=== PATIENT | female | born 1975 | race Two or more races ===

== ENCOUNTER 2024-05-31 15:47 | Outpatient (AMB) | payer MEDICAID, SELFPAY ==
[2024-05-31 16:02] VITALS: BP 129/87; PULSE 100; RESP 19; TEMP 36.7; O2SAT 98; BMI 24.7
--- NOTE | 2024-05-31 16:02 | PD.ORTHCLVIS ---
Vital signs 05/31/24 16:02 Height 1.74 m Height Method Stated Weight 75.013 kg Weight Measurement Method Standing Scale BMI 24.7 BP 129/87 H Blood Pressure Source Automatic Cuff Blood Pressure Location Right Upper Arm Position Sitting Respiration 19 Pulse 100 Pulse Source Monitor Temp 98.1 F Temp Source Temporal Artery Scan Pulse Oximetry (%) 98 Oxygen Delivery Method Room Air Med/Allergies Allergies & Medications Allergies No Known Drug Allergies Allergy (Verified 05/31/24 16:02) Medication Reconciliation acetaminophen 500 mg tablet 500 mg PO Q6H PRN Pain 03/29/24 [History Confirmed 05/31/24] oxycodone 5 mg tablet 5 mg PO Q6H PRN pain #14 tabs 03/30/24 [Rx Confirmed 05/31/24] acetaminophen 300 mg-codeine 30 mg tablet 1 tab PO Q8H PRN pain #28 tabs 04/05/24 [Rx Confirmed 05/31/24] acetaminophen 500 mg tablet (Acetaminophen Extra Strength) 1,000 mg (2 x 500 mg) PO Q6H PRN pain #90 tabs 05/24/24 [Rx Confirmed 05/31/24] Subjective Visit Visit for: follow up visit Immunization / Flu Flu Vaccine in the Last 12 Months: No Flu Vaccine Exclusion Criteria: No Exclusion Criteria Pain Pain level (0-10): 0 Pain quality: other (specify) (STIFFNESS) Associated signs & symptoms: stiffness and other (specify) (CANT BEND/KNEE LOCKS) Ambulatory data Ambulatory device: none Treatments Improvement with previous injections: No Improvement with PT: No Improvement with NSAIDS: no Review of Systems Review of Systems: All systems negative unless otherwise noted in HPI. Office Procedures GNS Level of Care Nursing/Assessment Patient Status: Established Patient Nursing Assessment/Reassesment: Medication Reconciliation, Update PMH in EMR and Vital Signs Coordination of Care: Complex Care and Chronic Disease 1-5, Education Complex Pt/Fam, Consent,records obtained, informed consent, 1 Ins Authorization and Staff clarify orders Special Needs: Language special needs Established Patient Charge Established Patient Point Assignment: 105 Established Patient Point Charge: EP Level 3 (80-115) Past Medical History Past Medical History Have you ever been diagnosed with any of the following: Neurological Problems Seizures: No Cardiology Problems Congestive Heart Failure: No Respiratory Problems Chronic Obstructive Pulmonary Disease (COPD): No Smoking: No Smoking Cessation Counseling: No Smoking Exposure: No Tobacco Use: No Stomache/Intestinal Problems Hepatitis: No Obesity: Yes Genital/Urinary Problems Renal Disease: No Kidney Stones: Yes Reproductive Problems Previous Pregnancies: Yes Musculoskeletal Problems Arthritis: Yes Endocrine Problems Diabetes Mellitus Type 1: No Diabetes Mellitus Type 2: No Other Problems Hospitalization: No Shingles: No Blood Transfusions: No Blood Transfusion Reaction: No Anesthesia Reactions: Yes (nausea and vomitting) Chicken Pox: Yes Cancer: No Surgical History Total Knee Replacement: Yes
== END 2024-05-31 16:14 | disposition home or self-care (01) ==
PROVIDERS: PCP Family Medicine; Referring Provider Family Medicine; Supervising Provider Orthopaedic Surgery Adult Reconstructive Orthopaedic Surgery; Visit Provider Orthopaedic Surgery Adult Reconstructive Orthopaedic Surgery
DX: M25.669 Stiffness of unspecified knee, not elsewhere classified (principal)
CPT/HCPCS: 99213; G0463

== ENCOUNTER 2024-08-09 15:21 | Outpatient (AMB) | payer MEDICAID, SELFPAY ==
[2024-08-09 15:42] VITALS: BP 115/80; PULSE 80; RESP 19; TEMP 36.7; O2SAT 98; BMI 25.2
--- NOTE | 2024-08-09 15:42 | PD.ORTHCLVIS ---
Vital signs 08/09/24 15:42 Height 1.74 m Height Method Stated Weight 76.204 kg Weight Measurement Method Standing Scale BMI 25.2 BP 115/80 Blood Pressure Source Automatic Cuff Blood Pressure Location Left Upper Arm Position Sitting Respiration 19 Pulse 80 Pulse Source Monitor Temp 98.1 F Temp Source Temporal Artery Scan Pulse Oximetry (%) 98 Oxygen Delivery Method Room Air Med/Allergies Allergies & Medications Allergies No Known Drug Allergies Allergy (Verified 08/09/24 15:43) Medication Reconciliation acetaminophen 500 mg tablet 500 mg PO Q6H PRN Pain 03/29/24 [History Confirmed 08/09/24] oxycodone 5 mg tablet 5 mg PO Q6H PRN pain #14 tabs 03/30/24 [Rx Confirmed 08/09/24] acetaminophen 300 mg-codeine 30 mg tablet 1 tab PO Q8H PRN pain #28 tabs 04/05/24 [Rx Confirmed 08/09/24] acetaminophen 500 mg tablet (Acetaminophen Extra Strength) 1,000 mg (2 x 500 mg) PO Q6H PRN pain #90 tabs 05/24/24 [Rx Confirmed 08/09/24] Subjective Visit Visit for: follow up visit Immunization / Flu Flu Vaccine in the Last 12 Months: No Flu Vaccine Exclusion Criteria: Refused by Patient and No Exclusion Criteria History of Present Illness Chief complaint: FOLLOW UP WEAKNESS Patient is 3.5-month status post manipulation. She is post to work with outpatient physical therapy. She reports that she is still improving. She also reports that her pain is better than before surgery. Personal History Red flag PMH: none Pain Pain level (0-10): 4 Pain duration: ON AND OFF Pain location: inside (medial), outside (lateral) and anterior Pain quality: sharp and aching Pain timing: night and increases with activity Associated signs & symptoms: weakness, stiffness and other (specify) (CANT BEND/KNEE LOCKS) Ambulatory data Ambulatory device: none Treatments Improvement with previous injections: No Improvement with PT: No Improvement with NSAIDS: no Review of Systems Review of Systems: All systems negative unless otherwise noted in HPI. Exam Exam Patient is in no acute distress and is cooperative with the examination today. Patient has a normal mood and affect. Breathing is nonlabored. In no respiratory distress. Bilateral extremities were evaluated and demonstrates sensation intact to light touch. Palpable pedal pulses are present. No significant edema is present. Patient has range of motion 0-95 degrees Assessment and Plan Problem List (1) Status post total left knee replacement: Status: Acute Plan: The patient is doing well but has some arthrofibrosis. We recommend continued physical therapy or exercises at home. Plan Patient is doing well. We will see the patient back in 3 months Office Procedures GNS Level of Care Nursing/Assessment Patient Status: Established Patient Nursing Assessment/Reassesment: Medication Reconciliation, Update PMH in EMR and Vital Signs Coordination of Care: Complex Care and Chronic Disease 1-5, Education Complex Pt/Fam, Consent,records obtained, informed consent, 1 Ins Authorization, Results/Orders obtained and Staff clarify orders Special Needs: Language special needs Established Patient Charge Established Patient Point Assignment: 110 Established Patient Point Charge: EP Level 3 (80-115) Past Medical History Past Medical History Have you ever been diagnosed with any of the following: Neurological Problems Seizures: No Cardiology Problems Congestive Heart Failure: No Respiratory Problems Chronic Obstructive Pulmonary Disease (COPD): No Smoking: No Smoking Cessation Counseling: No Smoking Exposure: No Tobacco Use: No Stomache/Intestinal Problems Hepatitis: No Obesity: Yes Genital/Urinary Problems Renal Disease: No Kidney Stones: Yes Reproductive Problems Previous Pregnancies: Yes Musculoskeletal Problems Arthritis: Yes Endocrine Problems Diabetes Mellitus Type 1: No Diabetes Mellitus Type 2: No Other Problems Hospitalization: No Shingles: No Blood Transfusions: No Blood Transfusion Reaction: No Anesthesia Reactions: Yes (nausea and vomitting) Chicken Pox: Yes Cancer: No Surgical History Total Knee Replacement: Yes
== END 2024-08-09 15:46 | disposition home or self-care (01) ==
LOC: HODSRG 15:21
PROVIDERS: Supervising Provider Orthopaedic Surgery Adult Reconstructive Orthopaedic Surgery; Visit Provider Orthopaedic Surgery Adult Reconstructive Orthopaedic Surgery
DX: Z96.652 Presence of left artificial knee joint (principal); M24.60 Ankylosis, unspecified joint
CPT/HCPCS: 99213; G0463

== ENCOUNTER 2024-11-08 14:48 | Outpatient (AMB) | payer MEDICAID, SELFPAY ==
--- NOTE | 2024-11-08 14:57 | PD.ORTHCLVIS ---
Vital signs 11/08/24 15:00 Height 1.74 m Height Method Stated Weight 76.685 kg Weight Measurement Method Standing Scale BMI 25.3 BP 122/84 Blood Pressure Source Automatic Cuff Blood Pressure Location Right Upper Arm Position Sitting Respiration 19 Pulse 83 Pulse Source Monitor Temp 97.8 F Temp Source Temporal Artery Scan Pulse Oximetry (%) 97 Oxygen Delivery Method Room Air Med/Allergies Allergies & Medications Allergies No Known Drug Allergies Allergy (Verified 11/08/24 15:01) Medication Reconciliation acetaminophen 500 mg tablet 500 mg PO Q6H PRN Pain 03/29/24 [History Confirmed 11/08/24] oxycodone 5 mg tablet 5 mg PO Q6H PRN pain #14 tabs 03/30/24 [Rx Confirmed 11/08/24] acetaminophen 300 mg-codeine 30 mg tablet 1 tab PO Q8H PRN pain #28 tabs 04/05/24 [Rx Confirmed 11/08/24] acetaminophen 500 mg tablet (Acetaminophen Extra Strength) 1,000 mg (2 x 500 mg) PO Q6H PRN pain #90 tabs 11/08/24 [Rx Confirmed 11/08/24] Exam Exam Patient is in no acute distress and is cooperative with the examination today. Patient has a normal mood and affect. Breathing is nonlabored. In no respiratory distress. Bilateral extremities were evaluated and demonstrates sensation intact to light touch. Palpable pedal pulses are present. No significant edema is present. Patient has range of motion 0-100 degrees Assessment and Plan Problem List (1) Status post total left knee replacement: Status: Acute Plan: Patient is doing well status post left total knee replacement complicated by arthrofibrosis status post manipulation. She should continue being active and do home exercises Plan We will see her back in approximately 3 months Office Procedures GNS Level of Care Nursing/Assessment Patient Status: Established Patient Nursing Assessment/Reassesment: Medication Reconciliation, Update PMH in EMR and Vital Signs Coordination of Care: Complex Care and Chronic Disease 1-5, Education Complex Pt/Fam, Consent,records obtained, informed consent, Results/Orders obtained and Staff clarify orders Special Needs: Language special needs Established Patient Charge Established Patient Point Assignment: 95 Established Patient Point Charge: Level 3 (80-115) AR Intake Visit Data Collection New Patient or Established: Established Patient (seen at [facility] within 3 years) Reason for Visit:: FOLLOW UP KNEE MANIPULATION Seen by Clinical Staff ONLY (RN/MA): No Verbal consent obtained for Telemed visit?: No Questionairres Past Medical History Past Medical History Have you ever been diagnosed with any of the following: Neurological Problems Seizures: No Cardiology Problems Congestive Heart Failure: No Respiratory Problems Chronic Obstructive Pulmonary Disease (COPD): No Smoking: No Smoking Cessation Counseling: No Smoking Exposure: No Tobacco Use: No Stomache/Intestinal Problems Hepatitis: No Obesity: Yes Genital/Urinary Problems Renal Disease: No Kidney Stones: Yes Reproductive Problems Previous Pregnancies: Yes Musculoskeletal Problems Arthritis: Yes Endocrine Problems Diabetes Mellitus Type 1: No Diabetes Mellitus Type 2: No Other Problems Hospitalization: No Shingles: No Blood Transfusions: No Blood Transfusion Reaction: No Anesthesia Reactions: Yes (nausea and vomitting) Chicken Pox: Yes Cancer: No Surgical History Total Knee Replacement: Yes Subjective Visit Visit for: follow up visit, post op #2 and knee Immunization / Flu Flu Vaccine in the Last 12 Months: No Flu Vaccine Exclusion Criteria: No Exclusion Criteria History of Present Illness Chief complaint: Left knee manipulation Patient is 7 months status postmanipulation anesthesia for stiffness after a total knee replacement. She is doing well. She reports some stiffness but the pain is improving. She is done with physical therapy and has great range of motion Pain Pain level (0-10): 5 Pain duration: COMES AND GOES Pain location: inside (medial), outside (lateral) and anterior Pain quality: sharp, dull and aching Pain timing: increases with activity Associated signs & symptoms: numbness Ambulatory data Ambulatory device: none Treatments Improvement with previous injections: No Improvement with PT: No Improvement with NSAIDS: no Review of Systems Review of Systems: All systems negative unless otherwise noted in HPI.
[2024-11-08 15:00] VITALS: BP 122/84; PULSE 83; RESP 19; TEMP 36.6; O2SAT 97; BMI 25.3
== END 2024-11-08 15:20 | disposition home or self-care (01) ==
LOC: HODSRG 14:48
PROVIDERS: Supervising Provider Orthopaedic Surgery Adult Reconstructive Orthopaedic Surgery; Visit Provider Orthopaedic Surgery Adult Reconstructive Orthopaedic Surgery
DX: Z47.1 Aftercare following joint replacement surgery (principal); Z96.652 Presence of left artificial knee joint
CPT/HCPCS: 99213; G0463

== ENCOUNTER → 2025-02-07 | Outpatient (CLI) | payer MEDICAID, SELFPAY ==
--- NOTE | 2025-02-07 14:16 | XR_ITS ---
Examination: Left knee 4 views TECHNIQUE: PA standing PA flexion lateral axial left knee standing 4 views Date and time: February 07, 2025 1427 hours INDICATIONS: Joint locking knee pain post knee replacement one year ago. FINDINGS: Mild osteopenia. Total left knee arthroplasty. Satisfactory alignment IMPRESSION: Total left knee replacement with satisfactory alignment
== END | disposition home or self-care (01) ==
PROVIDERS: PCP Nurse Practitioner Family; Referring Provider Orthopaedic Surgery Adult Reconstructive Orthopaedic Surgery; Visit Provider Orthopaedic Surgery Adult Reconstructive Orthopaedic Surgery
DX: M25.562 Pain in left knee (principal); Z96.652 Presence of left artificial knee joint
CPT/HCPCS: 73564

== ENCOUNTER 2025-02-10 08:49 | Outpatient (AMB) | payer MEDICAID, SELFPAY ==
[2025-02-10 09:05] VITALS: BP 110/75; PULSE 80; RESP 17; TEMP 35.7; O2SAT 97; BMI 24.5
--- NOTE | 2025-02-10 09:05 | PD.ORTHCLVIS ---
Vital signs 02/10/25 09:05 Height 1.74 m Height Method Stated Weight 74.446 kg Weight Measurement Method Standing Scale BMI 24.5 BP 110/75 Blood Pressure Source Automatic Cuff Blood Pressure Location Right Upper Arm Position Sitting Respiration 17 Pulse 80 Pulse Source Monitor Temp 96.3 F L Temp Source Temporal Artery Scan Pulse Oximetry (%) 97 Oxygen Delivery Method Room Air Med/Allergies Allergies & Medications Allergies No Known Drug Allergies Allergy (Verified 02/10/25 09:06) Medication Reconciliation acetaminophen 500 mg tablet 500 mg PO Q6H PRN Pain 03/29/24 [History Confirmed 02/10/25] oxycodone 5 mg tablet 5 mg PO Q6H PRN pain #14 tabs 03/30/24 [Rx Confirmed 02/10/25] acetaminophen 300 mg-codeine 30 mg tablet 1 tab PO Q8H PRN pain #28 tabs 04/05/24 [Rx Confirmed 02/10/25] acetaminophen 500 mg tablet (Acetaminophen Extra Strength) 1,000 mg (2 x 500 mg) PO Q6H PRN pain #90 tabs 11/08/24 [Rx Confirmed 02/10/25] Exam Exam Patient is in no acute distress and is cooperative with the examination today. Patient has a normal mood and affect. Breathing is nonlabored. In no respiratory distress. Bilateral extremities were evaluated and demonstrates sensation intact to light touch. Palpable pedal pulses are present. No significant edema is present. Patient has range of motion 0-100 degrees X-rays were reviewed from 02/07/2025. This demonstrates a total knee replacement in good alignment position. It is cementless Assessment and Plan Problem List (1) Status post total left knee replacement: Status: Acute Plan: Patient is doing well status post left total knee replacement complicated by arthrofibrosis status post manipulation. She has no stiffness at all right now and is doing well. Her pain is minimal and she is very happy Plan We will see her back in approximately 3 months Office Procedures GNS Level of Care Nursing/Assessment Patient Status: Established Patient Nursing Assessment/Reassesment: Medication Reconciliation, Update PMH in EMR and Vital Signs Coordination of Care: Complex Care and Chronic Disease 1-5, Education Complex Pt/Fam, Consent,records obtained, informed consent, Results/Orders obtained and Staff clarify orders Special Needs: Language special needs (CYM[place] ) Established Patient Charge Established Patient Point Assignment: 95 Established Patient Point Charge: EP Level 3 (80-115) MA Intake Visit Data Collection New Patient or Established: Established Patient (seen at [facility] within 3 years) Reason for Visit:: FU LT KNEE XRAY Seen by Clinical Staff ONLY (RN/MA): No Verbal consent obtained for Telemed visit?: 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 PCP or OBGYN visit in last 3 months: Yes Hx Now: No Do You Feel Safe at Home: Yes Authorities Contacted: N/A Questionairres Past Medical History Past Medical History Have you ever been diagnosed with any of the following: Neurological Problems Seizures: No Cardiology Problems Congestive Heart Failure: No Respiratory Problems Chronic Obstructive Pulmonary Disease (COPD): No Smoking: No Smoking Cessation Counseling: No Smoking Exposure: No Tobacco Use: No Stomache/Intestinal Problems Hepatitis: No Obesity: Yes Genital/Urinary Problems Renal Disease: No Kidney Stones: Yes Reproductive Problems Previous Pregnancies: Yes Musculoskeletal Problems Arthritis: Yes Endocrine Problems Diabetes Mellitus Type 1: No Diabetes Mellitus Type 2: No Other Problems Hospitalization: No Shingles: No Blood Transfusions: No Blood Transfusion Reaction: No Anesthesia Reactions: Yes (nausea and vomitting) Chicken Pox: Yes Cancer: No Surgical History Total Knee Replacement: Yes Subjective Visit Visit for: follow up visit and knee (LEFT KNEE ) Immunization / Flu Flu Vaccine in the Last 12 Months: Yes Flu Vaccine Exclusion Criteria: Already Received History of Present Illness Chief complaint: Left knee manipulation Patient is 12 months status postmanipulation anesthesia for stiffness after a total knee replacement. She is doing well. Reports almost no pain at all Personal History Red flag PMH: none Pain Pain level (0-10): 0 Pain duration: COMES AND GOES Pain location: inside (medial), outside (lateral) and anterior Pain quality: sharp, dull and aching Pain timing: increases with activity Associated signs & symptoms: numbness Ambulatory data Ambulatory device: none Treatments Number of previous injections: 0 Improvement with previous injections: No Number of Physical Therapy sessions: 12 Improvement with PT: Yes Improvement with NSAIDS: n/a Review of Systems Review of Systems: All systems negative unless otherwise noted in HPI.
== END 2025-02-10 09:19 | disposition home or self-care (01) ==
LOC: HODSRG 08:49
PROVIDERS: Supervising Provider Orthopaedic Surgery Adult Reconstructive Orthopaedic Surgery; Visit Provider Orthopaedic Surgery Adult Reconstructive Orthopaedic Surgery
DX: Z96.652 Presence of left artificial knee joint (principal)
CPT/HCPCS: 99213; G0463